=== PATIENT | female | born 1990 | race African-American/Black ===

== ENCOUNTER 2020-12-30 00:25 | Emergency (ER) | payer OTHER ==
[~2020-12-30] VITALS: Ht 162.6 cm; Wt 51.9 kg
[2020-12-30 00:39] VITALS: BP 118/71
[2020-12-30] MEDS ORDERED: IBUP-2028 MT (12:22)
== END 2020-12-30 06:28 | disposition left against medical advice (07) ==
LOC: ER 00:25
DX: Z53.21 Procedure and treatment not carried out due to patient leaving prior to being seen by health care provider (principal)

== ENCOUNTER 2020-12-30 09:16 | Emergency (ER) | payer OTHER ==
[~2020-12-30] VITALS: Ht 157.5 cm; Wt 78.0 kg
[2020-12-30] MEDS ORDERED: IBUPROFEN 400MG TABLET PO ONE (10:15)
[2020-12-30] MEDS ORDERED: ACETAMINOPHEN 325MG TABLET PO ONE (10:15)
[2020-12-30] MEDS ORDERED: LIDOCAINE 5% PATCH TOP SCH (10:30)
[2020-12-30] MEDS ORDERED: IBUP-2028 MT (12:22)
[2020-12-30 12:35] VITALS: BP 136/69
== END 2020-12-30 12:37 | disposition home or self-care (01) ==
LOC: ER 09:16
DX: S63.095A Other dislocation of left wrist and hand, initial encounter (principal); F41.9 Anxiety disorder, unspecified; M54.30 Sciatica, unspecified side; Y35.893A Legal intervention involving other specified means, suspect injured, initial encounter; Y93.89 Activity, other specified; Y92.89 Other specified places as the place of occurrence of the external cause; Y99.8 Other external cause status
CPT/HCPCS: 29125; 73110; 81025; 99283

== ENCOUNTER 2021-05-12 19:45 | Emergency (ER) | payer MEDICAID, OTHER ==
[~2021-05-12] VITALS: Ht 160 cm; Wt 60.0 kg
[~2021-05-12 19:45] MED LIST: IBUP-2028 MT
[2021-05-12] MEDS ORDERED: SODIUM CHLORIDE 0.9% 1,000 ML IV ONE (20:15)
[2021-05-12] MEDS ORDERED: DIPHENHYDRAMINE 25MG CAPSULE PO ONE (20:15)
[2021-05-12] MEDS ORDERED: ONDANSETRON 4MG ODT PO ONE (20:15)
[2021-05-12 21:37] LABS: HEMATOCRIT. 38.8 % (36.0-48.0); HEMOGLOBIN. 12.8 g/dL (12.0-16.0); MEAN CORPUSCULAR HEMOGLOBIN 31.8 pg (28.0-32.0); MEAN CORPUSCULAR VOLUME 96.2 fL (81.0-99.0); MEAN PLATELET VOLUME 9.5 fl (7.4-10.4); PLATELET 228 x1000/uL (130-400); RED BLOOD CELL COUNT 4.03 mill/uL (4.2-5.4)
[2021-05-12 21:40] LABS: CHLORIDE 109 mEq/L (98-107)
[2021-05-12 21:43] LABS: ETHANOL BLOOD < 10 mg/dL
[2021-05-12 22:14] LABS: PLATELET ESTIMATE NORMAL
[2021-05-12] MEDS ORDERED: NALO4SPR BOTHNSTRLS (22:42)
[2021-05-12 23:21] VITALS: BP 113/75
== END 2021-05-12 23:51 | disposition home or self-care (01) ==
LOC: ER 19:45
DX: T40.711A Poisoning by cannabis, accidental (unintentional), initial encounter (principal); F15.10 Other stimulant abuse, uncomplicated; F41.9 Anxiety disorder, unspecified; Y92.018 Other place in single-family (private) house as the place of occurrence of the external cause
CPT/HCPCS: 36415; 80053; 80320; 85025; 96360; 96361; 99283; J7030; Q0162; Q0163; G0480